=== PATIENT | male | born 1985 | race African-American/Black ===

== ENCOUNTER 2019-01-17 23:16 | Emergency (ER) | payer MEDICAID ==
[~2019-01-17] VITALS: Ht 167.6 cm; Wt 86.2 kg
[2019-01-17] MEDS ORDERED: IBUPROFEN600 MG ORAL (23:30)
--- NOTE | 2019-01-17 23:36 | NUR ---
Patient presents with complaints of abscess on right median upper thigh.
[2019-01-17 23:38] VITALS: BP 140/86
--- NOTE | 2019-01-18 00:03 | NUR ---
ED Nurse Note: ERMd at bedside.
[2019-01-18] MEDS ORDERED: ACETAMINOPHEN-1 EAC1 ORAL (00:08)
[2019-01-18] MEDS ORDERED: IBUPROFEN600 MG ORAL (00:08)
[2019-01-18] MEDS ORDERED: AUGMENTIN 875-1 EAC1 ORAL (00:08)
[2019-01-18] MEDS ORDERED: Tylenol #3 tab (300mg/30mg) ORAL ONE (00:15)
[2019-01-18] MEDS ORDERED: Augmentin 875mg Tab ORAL ONE (00:15)
--- NOTE | 2019-01-18 00:16 | NUR ---
ED Nurse Note: Patient cleared for discharge by JEN, patient has no s/s of acute distress, is ambulatory with steady gait A&Ox4, accompanied by his for the duration of the visit and upon departure. Patient verbalized understanding of discharge instructions and departed with all personal belongings.
[2019-01-18 00:18] VITALS: BP 140/86
--- NOTE | 2019-01-18 03:18 | Emergency Room Report ---
History of Present Illness General Chief Complaint: Skin Rash/Abscess Source: Patient Present Illness HPI 33-year-old male since ED for evaluation. Complaining of an abscess to his buttock. Has been there for the last 2 days. Dull, 8 out of 10 pain, nonradiating. Denies any fevers or chills. Denies any discharge. No other aggravating relieving factors. Denies any other associated symptoms Allergies: Coded Allergies: No Known Allergies (Unverified , 01/17/19) Patient History Past Medical History: none Past Surgical History: none Pertinent Family History: none Social History: Denies: smoking, alcohol use, drug use Immunizations: UTD Reviewed Nursing Documentation: PMH: Agreed; PSxH: Agreed Nursing Documentation-PMH Past Medical History: No Stated History Review of Systems All Other Systems: negative except mentioned in HPI Physical Exam Vital Signs Date Time Temp Pulse Resp B/P (MAP) Pulse Ox O2 Delivery O2 Flow Rate FiO2 01/17/19 23:25 98.8 96 15 140/86 95 Room Air Sp02 EP Interpretation: reviewed, normal General Appearance: no apparent distress, alert, GCS 15, non-toxic Head: normocephalic Eyes: bilateral eye normal inspection, bilateral eye PERRL ENT: normal ENT inspection Neck: normal inspection Respiratory: normal inspection Cardiovascular #1: normal inspection Gastrointestinal: normal inspection Rectal: deferred Genitourinary: no CVA tenderness, other - induration/erythema perineal area. no fluctuance or discharge Musculoskeletal: normal inspection Neurologic: alert, oriented x3, responsive, motor strength/tone normal, sensory intact, speech normal Psychiatric: normal inspection Skin: normal inspection Lymphatic: normal inspection Medical Decision Making Diagnostic Impression: Primary Impression: Abscess ER Course Hospital Course 33-year-old male presents to ED with pain/swelling to perineal area Differential diagnoses include: Cellulitis, dermatitis, insect bite, abscess Clinical course Patient placed on stretcher. After initial history, physical exam reveals a male in no acute distress. On exam there is erythema and induration to the perineal area. No fluctuance or discharge. discussed findings with patient. I see no indication for I and D at this time. Not amenable to drainage. We'll try conservative therapy with warm soaks, antibiotics Safe for discharge with close outpatient follow-up. Given pain meds and antibiotics here. We'll also provide surgery referrals. Diagnosis -abscess stable and discharged to home with prescription for augmentin, motrin, tylenol # 3. Instructed to followup with PMD. Instructed return to ED if symptoms recur or worsen Last Vital Signs Date Time Temp Pulse Resp B/P (MAP) Pulse Ox O2 Delivery O2 Flow Rate FiO2 01/18/19 00:18 98.8 69 15 140/86 95 Room Air Status: improved Disposition: HOME, SELF-CARE Condition: Stable Scripts Ibuprofen* (MOTRIN*) 600 Mg Tablet 600 MG ORAL Q8H PRN for For Pain, #30 TAB 0 Refills Prov: Thomas Gonzalez MD 01/18/19 Acetaminophen With Codeine (T#3) (TYLENOL #3 TAB*) Y Tab 1 TAB ORAL Q8H PRN for For Pain, #10 TAB Prov: Thomas Gonzalez MD 01/18/19 Amoxicillin/Potassium Clav 875-125* (AUGMENTIN 875-125 TABLET*) 1 Each Tablet 1 TAB ORAL TWICE A DAY, #14 TAB Prov: Thomas Gonzalez MD 01/18/19 Referrals: [facility]/,REFERRING (PCP) [facility] Patient Instructions: Abscess Thomas Gonzalez MD Jan 18, 2019 03:18
== END 2019-01-18 00:16 | disposition home or self-care (01) ==
LOC: EMR 01-18 00:15
DX: L02.31 Cutaneous abscess of buttock (principal)
CPT/HCPCS: 99282

== ENCOUNTER 2019-05-13 01:39 | Emergency (ER) | payer MEDICAID ==
[~2019-05-13] VITALS: Ht 170.2 cm; Wt 81.6 kg
[~2019-05-13 01:39] MED LIST: ACETAMINOPHEN-1 EAC1 ORAL; AUGMENTIN 875-1 EAC1 ORAL; IBUPROFEN600 MG ORAL
[2019-05-13] MEDS ORDERED: NKM (01:45)
[2019-05-13 01:48] VITALS: BP 134/88
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
[2019-05-13] MEDS ORDERED: Lidocaine 1% Plain 30 ml INJ ONE (02:00)
[2019-05-13] MEDS ORDERED: HYDROcodone/Acetamin 5/325 tab ORAL ONE (02:00)
[2019-05-13] MEDS ORDERED: NAPROXEN250 MG ORAL (02:56)
[2019-05-13 03:15] VITALS: BP 134/88
--- NOTE | 2019-05-13 03:16 | NUR ---
ED Nurse Note: Pt cleared by health care Provider for discharge. DC instructions/prescription was given and explained to pt and verbalized understanding of teachings. All medical deviecs such as ID band removed. Pt is AAO x4, ambulatory and left with all personal belongings.
--- NOTE | 2019-05-13 10:24 | Diagnostic Imaging Report ---
Indication: Left wrist pain COMPARISON: One hour earlier Findings: 3 views of the left wrist were obtained. There is a cast. There is a fracture of the distal radius which appears intra-articular. IMPRESSION: Post closed reduction as described above
--- NOTE | 2019-05-13 10:26 | Diagnostic Imaging Report ---
Indication: Left wrist pain Findings: 3 views of the left wrist were obtained. Intra-articular fracture comminuted involving the distal radius demonstrated. Ulnar styloid fracture also noted. Some impaction noted. Soft tissue swelling is present. IMPRESSION: Acute fracture distal radius
== END 2019-05-13 03:18 | disposition home or self-care (01) ==
LOC: EMR 02:24
DX: S52.502A Unspecified fracture of the lower end of left radius, initial encounter for closed fracture (principal); S52.202A Unspecified fracture of shaft of left ulna, initial encounter for closed fracture; Y04.8XXA Assault by other bodily force, initial encounter; Y92.9 Unspecified place or not applicable; F17.200 Nicotine dependence, unspecified, uncomplicated
CPT/HCPCS: 29125; 73110; 99284; J2001

== ENCOUNTER 2020-04-14 12:16 | Emergency (ER) | payer MEDICAID ==
[~2020-04-14] VITALS: Ht 167.6 cm; Wt 80.7 kg
[~2020-04-14 12:16] MED LIST changes: +NAPROXEN250 MG ORAL; +NKM
[2020-04-14 12:26] VITALS: BP 91/63
[2020-04-14] MEDS ORDERED: PENICILLIN V P500 MG PO (12:37)
--- NOTE | 2020-04-14 12:38 | Emergency Room Report ---
History of Present Illness General Chief Complaint: Sore Throat Source: Patient Present Illness HPI 34-year-old male presents with sore throat throat achy in nature moderate, worsened with swallowing alleviated by not swallowing x3 days patient endorses subjective fever/chills he denies any coughing, no abdominal pain no nausea no vomiting no diarrhea patient presents for evaluation treatment Allergies: Coded Allergies: No Known Allergies (Unverified , 01/17/19) COVID-19 Screening Contact w/high risk pt: No Recent Travel to affected area: No Experienced COVID-19 symptoms?: No COVID-19 Testing performed 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 Patient History Past Medical History: see triage record Reviewed Nursing Documentation: PMH: Agreed; PSxH: Agreed Nursing Documentation-PMH Past Medical History: No Stated History Review of Systems All Other Systems: negative except mentioned in HPI Physical Exam Vital Signs Date Time Temp Pulse Resp B/P (MAP) Pulse Ox O2 Delivery O2 Flow Rate FiO2 04/14/20 12:22 99.1 85 17 91/63 (72) 98 Room Air General Appearance: well appearing, no apparent distress Head: normocephalic, atraumatic ENT: hearing grossly normal, normal voice, pharyngeal erythema, tonsillar exudate Neck: full range of motion, supple Respiratory: no respiratory distress, speaking full sentences Neurologic: alert, normal gait Psychiatric: mood/affect normal Skin: no rash Medical Decision Making Diagnostic Impression: Primary Impression: Strep pharyngitis ER Course 34-year-old male presents with most likely strep pharyngitis patient provided Toradol, dexamethasone, will provide patient with penicillin disposition home with return precautions follow-up with PCP, center criteria positive Last Vital Signs Date Time Temp Pulse Resp B/P (MAP) Pulse Ox O2 Delivery O2 Flow Rate FiO2 04/14/20 12:26 99.1 79 17 91/63 98 Room Air Disposition: HOME, SELF-CARE Condition: Stable Scripts Penicillin V Potassium* (PENVK*) 500 Mg Tablet 500 MG PO Q6H for 10 Days, #40 TAB 0 Refills Prov: Socrates Burton MD 04/14/20 Referrals: [facility] Patient Instructions: Strep Throat Additional Instructions: The patient was provided with discharge instructions, notified to follow-up with a primary care doctor and or specialist in the next 24-48 hours, and to return to the ED if they have worsening of their symptoms. Please note that this report is being documented using DRAGON technology. This can lead to erroneous entry secondary to incorrect interpretation by the dictating instrument. Socrates Burton MD Apr 14, 2020 12:38
[2020-04-14 12:45] VITALS: BP 99/71
[2020-04-14] MEDS ORDERED: Ketorolac 30mg Inj IM ONE (12:45)
[2020-04-14] MEDS ORDERED: Acetaminophen 500mg (ES) tab ORAL ONE (12:45)
== END 2020-04-14 12:44 | disposition home or self-care (01) ==
LOC: EMR 12:40
DX: J02.0 Streptococcal pharyngitis (principal)
CPT/HCPCS: 96372; J1885; J8540; Z7502; 99283

== ENCOUNTER 2020-12-06 08:25 | Emergency (ER) | payer MEDICAID ==
[~2020-12-06] VITALS: Ht 170.2 cm; Wt 77.1 kg
[~2020-12-06 08:25] MED LIST changes: +PENICILLIN V P500 MG PO
--- NOTE | 2020-12-06 08:42 | Emergency Room Report ---
History of Present Illness General Chief Complaint: Toothache Source: Patient Present Illness HPI Patient presents with several days of increased left lower molar pain. He denies fevers or chills. He has been taking [id number] pain medication with little relief. He has been rinsing his mouth with hydroperoxide. He has had a dentist appointment to take care of this problem and says he has a hole in his tooth. He has been unable to get in to see his dentist. Patient denies exposure to Covid positive contacts. He works in a [employer]. No sore throat, chest pain, palpitations, nausea, vomiting, diarrhea, dysuria, abdominal pain, shortness of breath, joint pain, rashes, headache. 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 Patient History Past Medical History: none, see triage record Social History: Reports: smoking Social History Narrative works in [employer] Reviewed Nursing Documentation: PMH: Agreed; PSxH: Agreed Nursing Documentation-PMH Past Medical History: No Stated History Review of Systems All Other Systems: negative except mentioned in HPI Physical Exam Vital Signs Date Time Temp Pulse Resp B/P (MAP) Pulse Ox O2 Delivery O2 Flow Rate FiO2 12/06/20 08:32 97.9 66 16 136/87 (103) 99 Room Air Sp02 EP Interpretation: reviewed, normal General Appearance: well appearing, no apparent distress, GCS 15 Head: normocephalic Eyes: bilateral eye normal inspection, bilateral eye PERRL, bilateral eye EOMI ENT: moist mucus membranes, other - caries and tender L lower 2nd molar - no abscess Neck: full range of motion Respiratory: normal inspection Cardiovascular #1: regular rate, rhythm Cardiovascular #2: 2+ radial (R) Gastrointestinal: normal inspection Musculoskeletal: gait/station normal Neurologic: alert, grossly normal Psychiatric: mood/affect normal Skin: other - fully dressed Medical Decision Making Diagnostic Impression: Primary Impression: Pain, dental ER Course Patient presents with dental pain with a carious tooth. Differential includes abscess, infected root, toothache from caries amongst others. No abscess at this time in the gum. Antibiotics and anti-inflammatory/pain medication as needed. Discussed treatment plan with patient. Discussed the need for follow-up with a dentist. Patient stable for outpatient observation and treatment. Last Vital Signs Date Time Temp Pulse Resp B/P (MAP) Pulse Ox O2 Delivery O2 Flow Rate FiO2 12/06/20 09:00 97.8 96 16 134/84 99 Room Air Status: improved Disposition: HOME, SELF-CARE Condition: Improved Scripts Amoxicillin* (AMOXIL*) 500 Mg Capsule 500 MG ORAL THREE TIMES A DAY, #21 CAP Prov: Jaguar Blank MD 12/06/20 Ibuprofen* (MOTRIN*) 600 Mg Tablet 600 MG ORAL Q6H PRN for FOR PAIN, #20 TAB 0 Refills Prov: Jaguar Blank MD 12/06/20 Jaguar Blank MD Dec 06, 2020 08:42
--- NOTE | 2020-12-06 08:43 | NUR ---
ED Nurse Note: pt arrived for L lower toothache. pt states he is rinsing mouth and taking naproxen at home for pain. pt verbalizes to followup with dentist.
[2020-12-06] MEDS ORDERED: IBUPROFEN600 M1 ORAL (08:44)
[2020-12-06] MEDS ORDERED: AMOXICILLIN500 MG ORAL (08:44)
[2020-12-06 08:59] VITALS: BP 134/84
[2020-12-06 09:00] VITALS: BP 134/84
== END 2020-12-06 10:00 | disposition home or self-care (01) ==
LOC: EMR 09:42
DX: K08.89 Other specified disorders of teeth and supporting structures (principal); F17.200 Nicotine dependence, unspecified, uncomplicated
CPT/HCPCS: 99282